=== PATIENT | male | born 1980 | race Caucasian/White ===

== ENCOUNTER 2016-11-02 18:31 | Emergency (ER) | payer SELFPAY ==
[2016-11-02 18:42] VITALS: BP 151/84; PULSE 110; TEMP 97.6; BMI 37.0
[2016-11-02] MEDS ORDERED: Lidocaine 2%-Epinephrine 1:100,000 20ml vial INF ONE (18:55)
--- NOTE | 2016-11-02 19:42 | EDPRACDOC ---
- General Information Chief Complaint: Wound Stated Complaint: ?ABSCESS ON BACK DRAINING Time Seen by Provider: 11/02/16 18:44 Information Source: Patient Mode of Arrival:: Car Home Medications: Home Medications Ibuprofen 600 mg PO TID #20 tablet 11/02/16 Oxycodone Immediate Release [Oxycodone Immediate Release (OxyIR)] 5 mg PO Q6H PRN #30 tab 11/02/16 Sulfamethoxazole/Trimethoprim [Bactrim Ds Tablet] 1 tab PO BID #14 tab 11/02/16 Allergies/Adverse Reactions: Allergies Allergy/AdvReac Type Severity Reaction Status Date / Time bee Allergy Anaphylaxis Uncoded 11/02/16 18:47 * - History of Present Illness Onset: 3 days HPI: PT PRESENTS TODAY WITH PAINFUL MASS TO CENTER OF UPPER BACK X 3 DAYS. "ALWAYS HAD A SMALL BUMP THERE, BUT NOW IT'S BIGGER AND PAINFUL". NO FEVER. Location: Reports: Back Relevent History Of: Reports: None Prior Abscess: Reports: None Pain: Reports: Moderate Quality: Reports: Painful, Red Associated Signs & Symptoms: Reports: None ED Past Medical History - History Reviewed Yes Nurses notes reviewed and agree except as marked - Patient Medical History Psychological History: Denies: Depression - Social Medical History Smoking Status: Never smoker EDM Review of Systems - Review of Systems ROS Negative Except as Marked: Yes All systems reviewed and were negative except as marked Constitutional: No Symptoms Reported Respiratory: No Symptoms Reported Cardiovascular: No Symptoms Reported Gastrointestinal: No Symptoms Reported Neurological: No Symptoms Reported Musculoskeletal: Back Integumentary: Wound - Physical Exam Constitutional: Alert (Awake), No apparent distress Oriented to: Time, Person, Place Last recorded Vital Signs: Last Vital Signs Temp 97.6 F 11/02/16 18:40 Pulse 110 11/02/16 18:40 Resp 18 11/02/16 18:40 BP 151/84 11/02/16 18:40 Pulse Ox 96 11/02/16 18:40 Oxygen Pulse Oxygen Saturation 96 O2 Device Oxygen Flow Rate Fraction of Inspired Oxygen ( FIO2) - HEENT Head: Normal Eye Exam: Normal Neck: Normal, Denies Pain, Midline - Respiratory/Cardiovascular Respiratory: Normal - CTA Cardiovascular: Normal - GI Palpation: Normal Tenderness: Non tender - Musculoskeletal Back: Other (NOTED LARGE, 4 CM INFECTED SEBACEOUS CYST TO UPPER BACK;) Extremities: Normal - Integumentary Skin: Normal Lymphatics: Normal - Neurologic Cerebellar: Normal Mood Description: Normal Thought: Coherent Perception: Normal ED Abscess/Mass Exam - Integumentary Skin: Normal Mass: Size (4.0), Red, Tender, Warm, Firm Lymphatics: Normal ED Procedures - Incision and Drainage Informed of risks, benefits and alternatives described.: Yes Informed Consent Signed: Verbal Site: BACK Indication: Painful Mass Anesthetic: Lidocaine, with Epi Prep: Sterile Local Drape, Betadine Blade Size: 11 Incised Site drained: Reports: Seroma Incised site was: Not irrigated, Packed with Iodoform Decision Time to Discharge: 19:40 - Departure Disposition: Home Condition: Good Final Diagnosis: Infected sebaceous cyst Instructions: Epidermal Inclusion Cysts (ED) Education/Counseling Given To: Patient Education/Counseling Given Regarding: Diagnosis, Treatment, Follow Up Referrals: None,No Provider [Primary Care Provider] - One Week Maxx Aguilar MD [Staff Physician] - One Week Prescriptions: New Ibuprofen 600 mg PO TID #20 tablet Oxycodone Immediate Release [Oxycodone Immediate Release (OxyIR)] 5 mg PO Q6H PRN #30 tab PRN Reason: Pain Sulfamethoxazole/Trimethoprim [Bactrim Ds Tablet] 1 tab PO BID #14 tab Additional Instructions: DO NOT REMOVE BANDAGE. RETURN IN 2-3 DAYS TO EVALUATE PACKING.
[2016-11-02] MEDS ORDERED: OXYCODONE HCL 5 MG TABLET PO ONE (19:51)
[2016-11-02] MEDS ORDERED: IBUPROFEN 600 MG TAB PO ONE (19:52)
== END 2016-11-02 19:57 | disposition home or self-care (01) ==
LOC: EDMC 18:31
DX: L72.3 Sebaceous cyst (principal)
CPT/HCPCS: 10060; 99282; J3490

== ENCOUNTER 2016-11-04 16:30 | Emergency (ER) | payer SELFPAY ==
[2016-11-04 16:34] VITALS: BP 130/75; PULSE 84; TEMP 98.3
[2016-11-04 16:36] VITALS: BMI 32.8
--- NOTE | 2016-11-04 16:59 | EDPRACDOC ---
- General Information Chief Complaint: Wound Stated Complaint: WOUND CHECK WITH PACKING Time Seen by Provider: 11/04/16 16:54 Information Source: Patient Mode Of Arrival: Car Home Medications: Home Medications Ibuprofen 600 mg PO TID #20 tablet 11/02/16 Oxycodone Immediate Release [Oxycodone Immediate Release (OxyIR)] 5 mg PO Q6H PRN #30 tab 11/02/16 Sulfamethoxazole/Trimethoprim [Bactrim Ds Tablet] 1 tab PO BID #14 tab 11/02/16 Allergies/Adverse Reactions: Allergies Allergy/AdvReac Type Severity Reaction Status Date / Time bee Allergy Anaphylaxis Uncoded 11/04/16 16:38 * - History of Present Illness Onset: 2 days Wound Location: UPPER BACK Wound Type: Other (S/P I&D) Wound Discharge: None Previously Treated In: [facility] Current Wound Treatment: Local Treatment, Packed, Antibiotics Associated Signs and Symptoms: negative: Pain, Swelling, Local Redness ED Past Medical History - History Reviewed Yes Nurses notes reviewed and agree except as marked No Past Medical History: Yes Patient has no past medical history - Patient Medical History Psychological History: Denies: Depression - Social Medical History Smoking Status: Never smoker EDM Review of Systems - Review of Systems Constitutional: negative: Chills, Fever Musculoskeletal: No Symptoms Reported Integumentary: Wound - Physical Exam Constitutional: Alert (Awake), No apparent distress Oriented to: Time, Person, Place Last recorded Vital Signs: Last Vital Signs Temp 98.3 F 11/04/16 16:30 Pulse 84 11/04/16 16:30 Resp 18 11/04/16 16:30 BP 130/75 11/04/16 16:30 Pulse Ox 95 11/04/16 16:30 Oxygen Pulse Oxygen Saturation 95 O2 Device Oxygen Flow Rate Fraction of Inspired Oxygen ( FIO2) - HEENT Head: Normal ( normocephalic) - Neurologic Memory Impaired: Normal Motor Function: Normal (Normal tone, Pulses 2+ No cyanosis or edema, FROM) Cranial Nerve: Normal (CN II-X11 intact sensation, strength 5/5) Cerebellar: Normal Mood Description: Normal Perception: Normal ED Wound Check Exam - Wound Detail Wound Location: UPPER BACK, MIDLINE Healing: Well Discharge: None Erythema: Localized to Wound Edges - Other Exam Other Exam Findings: HEALING WELL, PACKING REMOVED WITHOUT DIFFICULTY - Differential Diagnosis Abscess, Healing wound Decision Time to Discharge: 16:58 - Departure Disposition: Home Condition: Stable Final Diagnosis: Visit for wound check Instructions: Epidermal Inclusion Cysts (ED) Education/Counseling Given To: Patient Education/Counseling Given Regarding: Diagnosis, Treatment, Prognosis, Follow Up Referrals: None,No Provider [Primary Care Provider] - One Week Prescriptions: Continue Ibuprofen 600 mg PO TID #20 tablet Oxycodone Immediate Release [Oxycodone Immediate Release (OxyIR)] 5 mg PO Q6H PRN #30 tab PRN Reason: Pain Sulfamethoxazole/Trimethoprim [Bactrim Ds Tablet] 1 tab PO BID #14 tab Additional Instructions: APPLY WARM COMPRESSES TO AFFECTED AREA 20 MINS AT A TIME 4 - 5 TIMES DAILY, RETURN TO THE ED FOR ANY WORSENING SYMPTOMS OR CONCERNS.
== END 2016-11-04 17:20 | disposition home or self-care (01) ==
LOC: EDMC 16:30
DX: L02.212 Cutaneous abscess of back [any part, except buttock and flank] (principal)
CPT/HCPCS: 99282